=== PATIENT | female | born 1975 | race Caucasian/White ===

== ENCOUNTER 2017-10-24 10:21 | Day surgery (SDC) | payer MEDICAID ==
[~2017-10-24] VITALS: Ht 154.9 cm; Wt 120.9 kg
--- NOTE | ~2017-10-24 | OP ---
PATIENT NAME: YOLANDA VELASCO MEDICAL RECORD: [id number] :73 LOCATION:D[facility] ADMISSION DATE: SURGEON: RIKKI ZELAYA MD DATE OF OPERATION: 10/24/2017 PROCEDURE: EGD with biopsy and esophageal balloon dilatation. REFERRING PHYSICIAN: Renee Kendall INDICATIONS: Ms. Velasco is a pleasant 41-year-old woman with a history of dysphagia, heartburn, and nausea which started approximately a year ago. She takes omeprazole 20 mg daily with moderate relief. She presents for outpatient EGD. PREMEDICATIONS: Total IV anesthesia (history of DVT, pulmonary embolus, BMI of 50, obstructive sleep apnea). INSTRUMENT: Olympus video gastroscope and Olympus balloon dilator 54-60 [place]. PROCEDURE AND FINDINGS: After receiving informed consent, Ms. Velasco's posterior pharynx was anesthetized with Cetacaine spray. She was placed in left lateral decubitus position, sedated as per anesthesia. After achieving adequate level of sedation, gastroscope was introduced per orally and advanced to the duodenum without difficulty. The esophageal mucosa was without erythema or ulcers. At the GE junction, was a partial nonobstructing Schatzki's ring. A small sliding-type hiatal hernia was present. Gastric mucosa was notable for mild prepyloric and antral erythema. Antral biopsies were obtained to rule out Helicobacter pylori. No lesions were seen along the incisura, in the cardia or fundus, or in the body of the stomach. Pylorus was patent and competent. Duodenal mucosa was without erythema or ulcers, appeared normal through the second portion. Gastroscope was then withdrawn to the stomach. Esophageal balloon dilator was then passed through the gastroscope, positioned midway across the distal esophagus, insulated to a 60-[place] size, held in place on the appropriate PSI for 60 seconds, then deflated with good results. The balloon was withdrawn and then biopsies were taken from the mid and distal esophagus. Gastroscope was withdrawn. Ms. Velasco tolerated procedure well. No immediate complications. ASSESSMENT: 1. Partial nonobstructing esophageal ring, status post esophageal balloon dilatation. 2. Small sliding-type hiatal hernia. 3. Mild gastritis. RECOMMENDATIONS: 1. Followup histopathology. 2. Consider increasing omeprazole to 20 mg p.o. b.i.d. TRANSINT:[id number] Voice Confirmation ID: [id number] DOCUMENT ID: [id number] OPERATIVE REPORT [id number] YOLANDA VELASCO TERRI MD at 1018 CC: RENEE KENDALL [phone] DICTATION DATE: 10/24/17 1444 ENGINEER SYSTEMS: 10/24/17 1530 [facility] 10/24/17 [place] [id number] [place] [id number]
[2017-10-24 10:41] LABS: BASOPHILS 0.3 % (0-2); EOSINOPHILS 2.9 % (0-7); HEMATOCRIT 38.7 % (36.0-48.0); HEMOGLOBIN 12.5 g/dL (12-16); IMMATURE GRANULOCYTES 0.3 % (0-5); LYMPHOCYTES 28.6 % (15-50); MCH 30.7 pg (26.0-34.0); MCHC 32.3 g/dL (31.0-37.0); MCV 95.1 fL (80.0-100.0); MONOCYTES 6.2 % (2-11); NEUTROPHILS 61.7 % (40-80); PLATELET COUNT 199 10x3/uL (130-400); RBC 4.07 10x6/uL (4.00-5.40); RDW 14.6 % (11.5-14.5); WBC 11.6 10x3/uL (4.8-10.8)
[2017-10-24 11:19] LABS: ANION GAP 14.2 mmol/L (8-16); CALCIUM 8.7 mg/dL (8.5-10.1); CARBON DIOXIDE 24.9 mmol/L (21.0-32.0); CREATININE - SERUM 2.6 mg/dL (0.6-1.3); POTASSIUM - SERUM 5.1 mmol/L (3.5-5.1)
[2017-10-24] MEDS ORDERED: TRADJENTA5 MG PO (12:20)
[2017-10-24] MEDS ORDERED: ELIQUIS5 MG PO (12:20)
[2017-10-24] MEDS ORDERED: ZOLOFT25 MG PO (12:20)
[2017-10-24] MEDS ORDERED: CYCLOBENZAPRINE10 MG PO (12:20)
[2017-10-24] MEDS ORDERED: GABAPENTIN100 MG PO (12:21)
[2017-10-24] MEDS ORDERED: FUROSEMIDE20 MG PO (12:21)
[2017-10-24] MEDS ORDERED: TEMAZEPAM30 MG PO (12:21)
[2017-10-24] MEDS ORDERED: ULTRAM50 MG PO (12:22)
[2017-10-24] MEDS ORDERED: ZESTORETIC 10/11 TAB PO (12:22)
[2017-10-24] MEDS ORDERED: DESERYL100 MG PO (12:22)
[2017-10-24] MEDS ORDERED: ACETIC ACID15 ML EACH EAR (12:23)
[2017-10-24] MEDS ORDERED: GLUCOTROL XL 5 M5 MG PO (12:23)
[2017-10-24] MEDS ORDERED: OMEPRAZOLE CAP 20M (12:23)
[2017-10-24] MEDS ORDERED: CARAFATE1 G (12:24)
[2017-10-24 12:25] VITALS: BP 161/65; Ht 154.9 cm; Wt 120.9 kg
== END 2017-10-24 15:18 | disposition home or self-care (01) ==
LOC: D.OPS 10:21
PROVIDERS: Anesthesiology
DX: R13.10 Dysphagia, unspecified (principal); K29.70 Gastritis, unspecified, without bleeding; K44.9 Diaphragmatic hernia without obstruction or gangrene; F17.200 Nicotine dependence, unspecified, uncomplicated; E11.9 Type 2 diabetes mellitus without complications; G47.30 Sleep apnea, unspecified; Z01.812 Encounter for preprocedural laboratory examination

== ENCOUNTER → 2018-01-03 11:32 | Outpatient (CLI) | payer MEDICAID ==
[2017-10-24 12:25] VITALS: BMI 50.3
[~2018-01-03 11:32] MED LIST: ACETIC ACID15 ML EACH EAR; CARAFATE1 G; CYCLOBENZAPRINE10 MG PO; DESERYL100 MG PO; ELIQUIS5 MG PO; FUROSEMIDE20 MG PO; GABAPENTIN100 MG PO; GLUCOTROL XL 5 M5 MG PO; OMEPRAZOLE CAP 20M; TEMAZEPAM30 MG PO; TRADJENTA5 MG PO; ULTRAM50 MG PO; ZESTORETIC 10/11 TAB PO; ZOLOFT25 MG PO
== END | disposition home or self-care (01) ==
LOC: D.MRI 11:30
DX: M54.5 Low back pain (principal)